=== PATIENT | female | born 2000 | race Caucasian/White ===

== ENCOUNTER 2021-03-15 17:34 | Emergency (ER) | payer OTHER ==
[2021-03-15 19:02] LABS: HEMOGLOBIN 13.9 gm/dl (12.3-15.3); RED BLOOD COUNT 4.45 M/UL (4.00-5.10); WHITE BLOOD COUNT 11.1 K/UL (4.5-11.0)
[2021-03-15 19:17] LABS: BUN/CREATININE RATIO 17 (0-10)
[2021-03-15] MEDS ORDERED: NAPROSYN500 MG PO (19:45)
[2021-03-15] MEDS ORDERED: ONDANSETRON ODT4 MG SL (19:45)
[2021-03-15] MEDS ORDERED: PROVERA10 MG PO (19:45)
== END 2021-03-15 20:13 | disposition home or self-care (01) ==
LOC: ER1 17:34
PROVIDERS: Physician Assistant Medical
DX: N93.9 Abnormal uterine and vaginal bleeding, unspecified (principal)
CPT/HCPCS: 80053; 81001; 84703; 85025; 85610; 87086; 99284